=== PATIENT | female | born 1935 | race Caucasian/White ===

== ENCOUNTER 2016-07-16 14:25 | Day surgery (SDC) | payer MEDICARE, OTHER ==
[2016-07-16] MEDS ORDERED: NALOXONE HCL INJ/PF 0.4 MG/1 ML SDV ONE (14:42)
[2016-07-16] MEDS ORDERED: FENTANYL CITRATE INJ/PF 100 MCG/2 ML AMPUL ONE (14:42)
[2016-07-16] MEDS ORDERED: GLUCAGON,HUMAN RECOMB 1 MG INJ ONE (14:43)
[2016-07-16] MEDS ORDERED: FLUMAZENIL INJ 0.5 MG/5 ML VIAL IV ONE (14:43)
[2016-07-16] MEDS ORDERED: EPINEPHRINE INJ 1 MG/10 ML DISP.SYRIN ONE (14:43)
[2016-07-16] MEDS: MIDAZOLAM 2 MG/2 ML INJ ONE ×2 (18:05→18:13)
--- NOTE | 2016-07-16 18:38 | Operative Report ---
Operative Report DATE OF SURGERY: 07/16/16 Operative Report: Pre-op diagnosis: Jaundice and choledocholithiasis on ultrasound Post-op diagnosis: 1. 1 cm common bile duct stone 2. Diffusely dilated biliary tree 3. Periampullary diverticulum Surgery: ERCP with sphincterotomy and balloon stone extraction Medications: Versed 3mg Fentanyl 100mcg IV push Tissue removed: None Procedure: After informed consent obtained from patient, the throat was sprayed with Hurricane and conscious sedation was achieved. The ERCP endoscope was then inserted into the esophagus blindly and advanced into the stomach. The duodenum was entered and the ampulla was identified. There was a moderate size periampullary diverticulum with the ampulla on the edge. Using the triple- lumen sphincterotomy catheter the common bile duct was freely cannulated. A cholangiogram was obtained which showed a large filling defect in the common bile duct. The common bile duct and intrahepatic ducts were markedly dilated. A good sized sphincterotomy was then performed using the endocut mode. The catheter was removed over the guidewire before a 9-12 mm balloon catheter was inserted. The balloon was inflated to 12 mm in the proximal common bile duct and pulled down the duct. A large yellow multifaceted stone was extracted. The duct was swept one more time. A balloon occlusion cholangiogram was normal. The pancreatic duct was intentionally not cannulated. Patient tolerated procedure well. Findings Common bile duct: Large gallstone Intrahepatic ducts: Normal Pancreatic duct: Not cannulated Plan: We'll keep in the hospital overnight. She will be undergoing a cholecystectomy in the near future OPERATION: .
[2016-07-16] MEDS ORDERED: RINGERS SOLUTION,LACTATED 1,000 ML IV PRN (18:39)
[2016-07-17 21:05] VITALS: BP 126/63
[2016-07-18 07:59] LABS: HEMATOCRIT 36.7 % (36.0-47.0); HEMOGLOBIN 12.6 g/dL (12.0-15.5); HGB HCT DIFFERENCE 1.1; MEAN CORPUSCULAR HEMOGLOBIN 29.4 pg (27.0-33.4); MEAN CORPUSCULAR HGB CONC 34.5 g/dL (32.0-36.0); MEAN CORPUSCULAR VOLUME 85 fl (80-97); RED BLOOD COUNT 4.29 10^6/uL (3.72-5.28); RED CELL DISTRIBUTION WIDTH 14.1 % (11.5-14.0); WHITE BLOOD COUNT 6.4 10^3/uL (4.0-10.5)
[2016-07-18 17:09] LABS: ALBUMIN 3.4 g/dL (3.5-5.0); ASPARTATE AMINO TRANSFERASE 52 U/L (14-36)
[2016-07-18 17:10] LABS: ALANINE AMINOTRANSFERASE 76 U/L (9-52); ALKALINE PHOSPHATASE 386 U/L (38-126); BILIRUBIN,DIRECT 1.1 mg/dL (0.0-0.4); BILIRUBIN,TOTAL 1.8 mg/dL (0.2-1.3); TOTAL PROTEIN 6.2 g/dL (6.3-8.2)
== END 2016-07-17 21:20 | disposition home or self-care (01) ==
LOC: 4S 14:25 → END 14:25
PROVIDERS: ATTEND Internal Medicine Gastroenterology
PROC: 0FC98ZZ Extirpation of Matter from Common Bile Duct, Via Natural or Artificial Opening Endoscopic (ICD-10-PCS; principal; 2016-07-16 16:30)
PROC: 0F798ZZ Dilation of Common Bile Duct, Via Natural or Artificial Opening Endoscopic (ICD-10-PCS; 2016-07-16 16:30)
DX: K80.50 Calculus of bile duct without cholangitis or cholecystitis without obstruction (principal); K83.8 Other specified diseases of biliary tract; K57.90 Diverticulosis of intestine, part unspecified, without perforation or abscess without bleeding; I10 Essential (primary) hypertension; Z96.642 Presence of left artificial hip joint; Z79.899 Other long term (current) drug therapy
CPT/HCPCS: 43264; 43262; 36415; 85027; 80076; 74328; J2250; J3010; J7120; J0171; J1610; J2310; J3490